=== PATIENT | male | born 1965 | race Two or more races ===

== ENCOUNTER 2020-07-23 01:15 | Emergency (ER) | payer MEDICARE ==
[2020-07-23 01:28] VITALS: BP 170/82; PULSE 58; TEMP 98; BMI 25.1
[2020-07-23] MEDS ORDERED: AMOXICILLIN 500 MG CAPSULE (FP) PO ONE (01:32)
[2020-07-23] MEDS ORDERED: AMOXICILLIN 250 MG CAPSULE ONE (01:42)
== END 2020-07-23 02:15 | disposition home or self-care (01) ==
LOC: FER 01:15
DX: K02.9 Dental caries, unspecified (principal)
CPT/HCPCS: 99283-25

== ENCOUNTER 2022-02-25 14:40 | Emergency (ER) | payer MEDICARE ==
[2022-02-25 14:50] VITALS: BP 141/72; PULSE 60; RESP 18; TEMP 97.7; BMI 25.4
== END 2022-02-25 15:35 | disposition home or self-care (01) ==
LOC: FER 14:40
DX: S91.301A Unspecified open wound, right foot, initial encounter (principal); Y99.9 Unspecified external cause status
CPT/HCPCS: 99281-25

== ENCOUNTER 2022-05-06 14:03 | Emergency (ER) | payer OTHER, MEDICARE ==
[2022-05-06 14:07] VITALS: BP 151/88; PULSE 79; RESP 18; TEMP 98.7; BMI 25.7
== END 2022-05-06 16:30 | disposition home or self-care (01) ==
LOC: FER 14:03
DX: M54.2 Cervicalgia (principal)
CPT/HCPCS: 72125-TC; 73000-TC-LT-FY; 73030-TC-LT-FY; 99284-25